=== PATIENT | female | born 1960 | race Caucasian/White ===

== ENCOUNTER 2016-08-18 09:21 | Emergency (ER) | payer OTHER ==
[~2016-08-18] VITALS: Ht 153.7 cm; Wt 105.5 kg
[2016-08-18 09:23] VITALS: BP 158/95; PULSE 74; RESP 15; O2SAT 97
--- NOTE | 2016-08-18 09:42 | ED.REPORT ---
HPI-Chest Pain 40 and Over Date of Service Aug 18, 2016 ED Provider: Jonathan Mcguire DO Pt is a 55 y/o female w/ a hx of IDDM, HTN, hyperlipidemia, presenting to the ED from Urgent Care c/o intermittent aching left-sided CP with radiation to the back onset 04:00 today. She generally wakes up early and was picking up objects and performing chores and began to experience chest pain that was exacerbated by arm movement. The pain is not increased with exertion. She c/o associated infrequent irregular palpitations. Pt denies SOB, cough, diaphoresis, lightheadedness, pleuritic pain, nausea, vomiting, abdominal pain. Clinic notes indicate a negative exercise treadmill stress test in 2012. There is a family history of heart disease in her father, and assumed to be in her mother. She is not a smoker. Nursing Notes Stated Complaint: CHEST PAIN Chief Complaint: Chest Pain Nursing Notes Reviewed: Yes Allergies: Coded Allergies: TAPE (Verified Adverse Reaction, Intermediate, BLISTERS, 08/18/16) aspirin (Verified Adverse Reaction, Intermediate, BLOODY NOSE, 08/18/16) General Time Seen by MD: 09:32 Chief Complaint Chest pain Hx Obtained From: Patient Arrived By: Walk-in Sudden in Onset?: No Onset Occurred: 5 - 8 hours ago Symptom Duration: Intermittent Location: : Chest left Quality: Aching Radiation: : Back Severity: Current: Mild Severity: Maximum: Mild Similar Sx Previous: No Risk Factors HEART Score HEART for MACE: Low index of susp (0), Normal ECG (0), Age 45 - 65 (1), 3+ CAD risk factors (2), < or = to NL troponin (0) HEART for MACE Score: 0-3 (low risk 0.9%-1.7%) Past Medical History Past Medical History Hypertension Hyperlipidemia IDDM - last A1C ~8 Chronic right shoulder pain Past Surgical History Hysterectomy Appendectomy Family History CAD in father CAD presumed to be in mother Smoking History Never Smoker Social History Other Social History: Ambulatory Status Independent Review of Systems Constitutional: Denies: Chills, Fever Respiratory: Denies: Dyspnea on exertion, Non-productive cough, Pleuritic pain , Shortness of breath Cardiovascular: Reports: Chest pain, Denies: Dyspnea on exertion, Edema GI: Denies: Abdominal pain, Diarrhea, Nausea, Vomiting Skin: Denies Diaphoresis, Denies Rash Complete sys rev & neg: except as marked. Physical Exam Initial Vital Signs Vital Signs (First) Date Time Temp Pulse Resp B/P Pulse Ox O2 Delivery O2 Flow Rate FiO2 08/18/16 09:23 36.4 74 15 158/95 97 Room Air Initial VS: Reviewed, Vital signs normal Head / Eyes: Atraumatic, Normocephalic, PERRL ENT: Mucous membranes moist, Conjunctiva normal, No scleral icterus Neck: Supple, Full range of motion Extremities: Vascular intact, Neuro intact, No swelling, No tenderness Skin: Warm, Dry, No cyanosis Neurologic: Alert, Oriented, Nonfocal Psychiatric: Mood/affect normal, Behavior normal, Normal thought content General/Constitutional: Awake, Alert, No acute distress, Well appearing, Cooperative, Not toxic appearing Respiratory / Chest: Atraumatic, Breath sounds NL, Breath sounds = bilat, No respiratory distress, No rales, No rhonchi, No wheezing, No retractions, No stridor, No chest tenderness, No chest wall deformity, No crepitus Cardiovascular: Heart rate NL, Regular rhythm, Heart sounds NL, No gallop, No murmurs, No rubs, Cap refill not delayed, Peripheral circulation NL Abdomen: Atraumatic, Soft, Non-tender, No guarding, No rebound, No distention, No palpable mass Interpretation & Diagnostics Lab Results Interpretation Result Diagram: 08/18/16 0945 08/18/16 0945 Test 08/18/16 09:45 White Blood Count 7.2th/mm3 (3.8-10.1) Red Blood Count 4.51mil/mm3 (3.90-5.20) Hemoglobin 13.8g/dL (12.0-15.6) Hematocrit 40.8% (35.0-46.0) Mean Corpuscular Volume 90.5fL (81-100) Mean Corpuscular Hemoglobin 30.6pg (27.0-35.0) Mean Corpuscular Hemoglobin Concent 33.8% (32.0-37.0) Red Cell Distribution Width 13.9% (12.3-15.4) Platelet Count 217bil/L (150-400) Neutrophils (%) (Auto) 56.1% (40-74) Lymphocytes (%) (Auto) 32.9% (14-46) Monocytes (%) (Auto) 7.8% (4-12) Eosinophils (%) (Auto) 2.8% (0-5) Basophils (%) (Auto) 0.3% (0-3) Prothrombin Time 9.7sec (8.1-12.5) Prothromb Time International Ratio 0.91ratio Activated Partial Thromboplast Time 25.8sec (22.8-33.0) D-Dimer < 0.50mg/L FEU (<0.50) Sodium Level 137mEq/L (134-144) Potassium Level 4.1mEq/L (3.5-5.2) Chloride Level 95mEq/L (97-108) Carbon Dioxide Level 25mmol/L (18-29) Blood Urea Nitrogen 10mg/dL (6-24) Creatinine 0.53mg/dL (0.57-1.00) Estimat Glomerular Filtration Rate 172mL/min (>59) Glucose Level 228mg/dL (60-99) Calcium Level 9.9mg/dL (8.5-10.1) Magnesium Level 1.5mg/dL (1.6-2.6) Total Bilirubin 0.4mg/dL (0.0-1.2) Aspartate Amino Transf (AST/SGOT) 24U/L (0-50) Alanine Aminotransferase (ALT/SGPT) 49U/L (0-32) Alkaline Phosphatase 56U/L (25-150) Troponin T 0.010ug/L (0.0-0.011) Total Protein 7.1g/dL (6.4-8.4) Albumin 4.4g/dL (3.4-5.0) Hold Lucio Top Tube Received (Received) ECG Interpretation ECG Interpretation: Sinus rhythm rate 71 T wave inversion lead III No prior available for comparison Time: 09:49 Interpreted by: ED physician Normal ECG Interpretation: Normal rate, Normal sinus rhythm, No acute ischemic changes, Normal QRS, Normal axis, Normal intervals, Adequate tracing X-Ray Chest Interpretation Chest Xray Interpretation: IMPRESSION: No acute or active disease is seen in the two-view chest. Dictated by: Glenn Lindsey M.D. on 08/18/2016 at 10:50 Approved by: Glenn Lindsey M.D. on 08/18/2016 at 10:51 View: Portable, AP & lat Interpretation / Wet Read by: Interpret - Radiologist Re-Eval/Medical Decision Med Decision/Clinical Course 55-year-old female with multiple cardiac risk factors but no known cardiac history presents for evaluation after awakening at 4 AM with chest pain. Chest pain is nonexertional but seems to be worsened by left arm movement. It does radiate to her back. I checked a d-dimer to rule out aortic dissection and pulmonary embolus although unlikely given that her pain was down to a 0 or 1 without intervention upon arrival. She appeared very comfortable on exam. EKG had inverted T waves inferiorly in leads 3 but was otherwise negative, no previous EKG was available for comparison. Stress test was done 4 years ago and was reviewed today. It was negative. I believe that her pain is musculoskeletal and we have effectively ruled out dangerous causes, however given her obesity, family history of heart disease, hypertension, uncontrolled diabetes, and hyperlipidemia I do recommend that she have a follow-up stress test as an outpatient. Patient is agreeable with this. Time of Eval: 12:24 Re-Evaluation/Progress Note: Pt rechecked. Negative results discussed. Informed pt of plan for treatment. Pt understands and agrees with plan for treatment. F/U instructions and RTER warnings given. All questions addressed. Counseled Regarding: Diagnosis, Lab results, Need for follow-up, When/why to return to ED Discharge & Departure Primary Impression: Chest pain Chest pain type: unspecified Qualified Code: R07.9 - Chest pain, unspecified Disposition: Home Discharge Condition All VS Reviewed: Yes Condition: Stable Patient Instructions: Chest Pain (ED) Additional Instructions: The lab today including the heart muscle and blood clot test were negative. The chest x-ray and EKG were also normal. The cause of your pain is uncertain at this point but may be musculoskeletal. With your family history and medical history, I recommend you obtain another stress test as an outpatient. Return to the emergency department for increased chest pain, shortness of breath , profuse sweating, vomiting, or for other concerning symptoms. Follow-up with your primary care doctor next week to discuss today's findings. Referrals: Amy Cheung MD Scribe Attestation Portions of this note were transcribed by Bentley Bland. IDr. Mcguire personally performed the history, physical exam and medical decision-making; I reviewed and confirmed the accuracy of the information in the transcribed note. Signed by Bernadette Nichols, 08/18/16 - 1000 copies to: Amy Cheung MD, Gary R DO Aug 18, 2016 09:42 BENTLEY BLAND Aug 18, 2016 09:46
[2016-08-18 10:09] LABS: BASOPHILS % (AUTO) 0.3 % (0-3); EOSINOPHILS % (AUTO) 2.8 % (0-5); MONOCYTES % (AUTO) 7.8 % (4-12); Mean Corpuscular Hemoglobin 30.6 pg (27.0-35.0); Mean Corpuscular Volume 90.5 fL (81-100); NEUTROPHILS % (AUTO) 56.1 % (40-74); Platelet Count 217 bil/L (150-400)
[2016-08-18 10:14] LABS: INR 0.91 ratio
[2016-08-18 10:19] LABS: TROPONIN T 0.01 ug/L (0.0-0.011)
[2016-08-18 10:30] LABS: Magnesium 1.5 mg/dL (1.6-2.6)
[2016-08-18 10:36] VITALS: BP 150/86; PULSE 74; RESP 13; O2SAT 95
--- NOTE | 2016-08-18 10:52 | DRSVH ---
PROCEDURE: X-RAY CHEST, TWO VIEWS ([id number]) INDICATIONS: chest pain TECHNIQUE: 2 views of the chest were acquired. COMPARISON: None. FINDINGS: Surgical changes and devices: fuse cutter leads are seen over the chest. Lungs and pleura: No pleural effusions or pneumothorax. Lungs are clear. Mediastinum: Mediastinal contours are normal. Heart size is normal. Bones and chest wall: No suspicious bony abnormalities. Soft tissues appear unremarkable. IMPRESSION: No acute or active disease is seen in the two-view chest. Dictated by: Glenn Lindsey M.D. on 08/18/2016 at 10:50 Approved by: Glenn Lindsey M.D. on 08/18/2016 at 10:51
[2016-08-18 12:33] VITALS: BP 133/75; PULSE 77; RESP 16; O2SAT 95
[2016-08-18 12:41] VITALS: BP 133/75; PULSE 77; RESP 16; O2SAT 95
== END 2016-08-18 12:42 | disposition home or self-care (01) ==
LOC: SED 09:21
DX: R07.9 Chest pain, unspecified (principal); I10 Essential (primary) hypertension; E78.5 Hyperlipidemia, unspecified; Z88.8 Allergy status to other drugs, medicaments and biological substances; Z91.048 Other nonmedicinal substance allergy status